=== PATIENT | male | born 1970 | race African-American/Black ===

== ENCOUNTER 2019-02-06 17:06 | Inpatient (IN) ==
--- NOTE | 2019-02-06 19:14 | Diag Imaging Result Doc PS360 ---
EXAM: CHEST-2 VIEWS INDICATION: SOB TECHNIQUE: 2 views COMPARISON: None. FINDINGS: The lungs are grossly clear. There is no discrete pleural fluid collection or pneumothorax. The cardiomediastinal silhouette and central vasculature are grossly unremarkable. IMPRESSION: No evidence of acute pathology by plain radiograph. Electronically signed by Bobby Mcneal 02/06/2019 7:12 PM
[2019-02-06] MEDS ORDERED: CATAPRES PO ONE (19:15)
[2019-02-06 19:33] LABS: BASO# 0.04 X1000 (0.0-0.2); BASO% 0.3 % (0.0-0.8); EOS# 0.34 X1000 (0.0-0.7); EOS% 2.7 % (0.0-10.0); HEMATOCRIT 41.5 % (42.0-52.0); HEMOGLOBIN 13.7 g/dL (14.0-18.0); IMM GRAN# 0.02 X1000 (0.0-0.04); IMM GRAN% 0.2 % (0.0-0.5); LYMPH# 5.31 X1000 (1.2-3.4); LYMPH% 42.4 % (20.5-51.1); MCH 28.9 PG (27-31); MCV 87.6 FL (81-99); MONO# 1.14 X1000 (0.11-0.59); MONO% 9.1 % (1.7-9.3); MPV 10.5 FL (7.4-10.4); NEUT# 5.66 X1000 (1.4-6.5); NEUT% 45.3 % (42.2-75.2); PLT 273 X1000 (130-400); RBC 4.74 XMIL (4.7-6.1); RDW 15.9 % (11.5-14.5); WBC 12.51 X1000 (4.8-10.8)
[2019-02-06 19:52] LABS: AGAP 11; ALBUMIN 4.9 g/dL (3.5-5.0); ALKALINE PHOSPHATASE 94 U/L (32-122); BUN 16 mg/dL (8-22); CALCIUM 9.5 mg/dL (8.8-10.2); CHLORIDE 104 mmol/L (98-107); COSMO 282; CREATININE 0.9 mg/dL (0.7-1.2); ESTIMATED GFR > 60; GLUCOSE 89 mg/dL (70-104); GOT 16 U/L (10-34); GPT 9 U/L (10-44); POTASSIUM 4.3 mmol/L (3.5-5.1); SODIUM 141 mmol/L (136-145); TCO2 26 mmol/L (25-35); TOTAL PROTEIN 7.8 g/dL (6.3-8.3)
[2019-02-06] MEDS: DUONEB (A & A) INH ONE ×2 (21:37→21:38)
--- NOTE | 2019-02-06 22:36 | EKG Report ---
Test Performed on : 02/06/2019 7:07:22 PM Test Reason : sob Blood Pressure : / mmHG Vent. Rate : 060 BPM Atrial Rate : 060 BPM P-R Int : 198 ms QRS Dur : 086 ms QT Int : 398 ms P-R-T Axes : 051 068 -19 degrees QTc Int : 398 ms Normal sinus rhythm. Minimal voltage criteria for LVH, may be normal variant Nonspecific T wave abnormality Abnormal ECG No previous ECGs available Unconfirmed Result
--- NOTE | 2019-02-06 23:44 | PROVIDER DOCUMENTATION ---
This chart was entered by Radha Mcneal Scribe, acting as scribe for Flavio Thomas MD. HPI-Respiratory General - General Chief Complaint: Shortness of Breath Stated Complaint: SOB, LIGHT HEADED Time Seen by Provider: 02/06/19 19:07 Source: patient Allergies/Adverse Reactions: Patient Allergies Allergy/AdvReac Type Severity Reaction Status Date / Time No Known Allergies Allergy Verified 02/06/19 17:17 Home Medications: Home Medication List Medication Instructions Recorded Confirmed Last Taken Type NK [No Home Medications] 02/06/19 02/06/19 Unknown History - History of Present Illness-Resp Nature of Presenting Problem: 48 yom presents to ed w/cc sob and lightheadedness since wednesday. pt noticed symptoms at work. pt walks up and down stairs frequently. pt took day off work wednesday but is still having symptoms. when pt sits, lightheadedness stops. pt denies cp at time of exam but states that he did have chest discomfort today, syncope. pt has hx of htn, was on lisinopril but hasn't taken for a while. no fam hx of cardiac dx. pt is a smoker, denies alcohol use. Quality of Pain: reports: none Severity in ED: reports: mild Onset/Duration: reports: 3 days ago Timing: reports: still present Cough Quality/Degree: reports: no cough Current Respiratory Medication Therapy: Initiated none Review of Systems - Adult - REVIEW OF SYSTEMS - ADULT Constitutional: reports: no symptoms reported Eyes: reports: no symptoms reported Ears, Nose, Mouth & Throat: reports: no symptoms reported Cardiovascular: reports: no symptoms reported. denies: chest pain, palpitations, syncope Respiratory: reports: see HPI, shortness of breath. denies: cough, dyspnea on exertion, pleurisy, wheezing Gastrointestinal: reports: no symptoms reported Genitourinary: reports: no symptoms reported Musculoskeletal: reports: no symptoms reported Integumentary: reports: no symptoms reported Neurological: reports: see HPI, other (lightheaded). denies: dizziness/vertigo, headache/migraines, syncope Psychiatric: reports: no symptoms reported Endocrine: reports: no symptoms reported Hematologic/Lymphatic: reports: no symptoms reported Allergic/Immunologic: reports: no symptoms reported All Other Systems: Reviewed and Negative Past History - Adult - PAST MEDICAL HISTORY-ADULT Review of Records: reports: Old Records Reviewed, Nursing Assessment Review, Medications Reviewed, Social history reviewed & non-contributory. Major Childhood Illnesses: reports: denies history Cardiovascular: reports: HTN Respiratory: reports: denies history Gastrointestinal: reports: denies history Obstetrical/Gynecological: reports: denies history Genitourinary: reports: denies history Musculoskeletal: reports: denies history Neurological: reports: CVA Endocrine/Immune: reports: denies history Other Conditions: reports: denies history - PRIOR SURGERIES/PROCEDURES Surgical/Procedure History: reports: none - IMMUNIZATION STATUS Childhood Immunizations: See Nurse Assessment Flu Vaccine: See Nurse Assessment - FAMILY HISTORY Family History: reviewed, not pertinent - SOCIAL HISTORY Smoking: cigarettes, less than 1 pack/day Provider spent 3-5 mins advising pt. on dangers of tobacco.: Discussed manners to quit use, and f/u contacts for add'l counseling. Substance Use: none/never Physical Exam-General - PHYSICAL EXAM-ADULT Initial Vital Signs Reviewed: Yes - CONSTITUTIONAL General Appearance: appears well, alert, no apparent distress - EYES Eyes: PERRL/EOMI, pink conjunctivae - HEAD, EARS, NOSE, MOUTH & THROAT HENMT: normocephalic/atraumatic, moist mucous membranes, normal ENT inspection - NECK Neck: non-tender, full range of motion, supple, normal inspection - RESPIRATORY Respiratory: chest non-tender, lungs clear, normal breath sounds, no pleuratic chest pain, no respiratory distress, no accessory muscle use, other (pt o2 sat at 1713 is 99%). negative: respiratory distress, decreased breath sounds, accessory muscle use, stridor, wheezing - CARDIOVASCULAR Cardiovascular: normal peripheral pulses, regular rate, rhythm - GASTROINTESTINAL (ABDOMEN) Abdominal Exam: normal bowel sounds, non tender, soft - LYMPHATIC Lymphatic: no adenopathy - MUSCULOSKELETAL Back Exam: normal inspection, no CVA tenderness, no vertebral tenderness Extremity: normal range of motion, non-tender, normal inspection Peripheral Pulses: radial (R): 2+, radial (L): 2+ - SKIN Integumentary: normal color, normal turgor, warm/dry - NEUROLOGIC Neurologic: grossly normal, no motor/sensory deficits - PSYCHIATRIC Psych/Mental Status: normal mood/affect, normal thought content, normal thought process, oriented x 3 - HEART Score HEART Score: History: Moderately Suspicious HEART Score: ECG: Non-Specific Repolarization Disturbance/LBBB/PM HEART Score: Age: 45-65 Years HEART Score: Risk Factors for Atherosclerotic Disease: 1 or 2 Risk Factors HEART Score: Troponin: < or = Normal Limit Total HEART Score:: 4 Progress - PLAN OF CARE/RESULTS Progress/Plan/Lab Results: Vital Signs - 8 hr 02/06/19 17:13 02/06/19 21:37 Temperature 98.5 F Pulse Rate 71 55 L Respiratory Rate 18 12 Blood Pressure 148/82 O2 Sat by Pulse Oximetry 99 100 Laboratory Results - last 24 hr 02/06/19 02/06/19 02/06/19 19:22 19:22 19:22 WBC 12.51 H RBC 4.74 Hgb 13.7 L Hct 41.5 L MCV 87.6 MCH 28.9 MCHC 33.0 RDW Std Deviation 15.9 H Plt Count 273 MPV 10.5 H Immature Gran % (Auto) 0.2 Neut % (Auto) 45.3 Lymph % (Auto) 42.4 Terry % (Auto) 9.1 Eos % (Auto) 2.7 Baso % (Auto) 0.3 Immature Gran # (Auto) 0.02 Neut # (Auto) 5.66 Lymph # (Auto) 5.31 H Terry # (Auto) 1.14 H Eos # (Auto) 0.34 Baso # (Auto) 0.04 D-Dimer, Quantitative 0.38 Sodium Potassium Chloride Carbon Dioxide Anion Gap BUN Creatinine Estimated GFR/1.73 m2 BUN/Creatinine Ratio Glucose Calculated Osmolality Calcium Total Bilirubin AST ALT Alkaline Phosphatase Troponin T < 0.010 Oxk-E-Eaditvgongu Pept Total Protein Albumin Globulin Albumin/Globulin Ratio 02/06/19 02/06/19 19:22 19:22 WBC RBC Hgb Hct MCV MCH MCHC RDW Std Deviation Plt Count MPV Immature Gran % (Auto) Neut % (Auto) Lymph % (Auto) Terry % (Auto) Eos % (Auto) Baso % (Auto) Immature Gran # (Auto) Neut # (Auto) Lymph # (Auto) Terry # (Auto) Eos # (Auto) Baso # (Auto) D-Dimer, Quantitative Sodium 141 Potassium 4.3 Chloride 104 Carbon Dioxide 26 Anion Gap 11 BUN 16 Creatinine 0.9 Estimated GFR/1.73 m2 > 60 BUN/Creatinine Ratio 18 Glucose 89 Calculated Osmolality 282 Calcium 9.5 Total Bilirubin 0.20 AST 16 ALT 9 L Alkaline Phosphatase 94 Troponin T Ocu-Z-Fcxrqhstmsx Pept 209 H Total Protein 7.8 Albumin 4.9 Globulin 3.0 Albumin/Globulin Ratio 2.0 Orders Category Date Time Status CHEST-2 VIEWS [RAD] Stat Exams 02/06/19 17:20 Completed CBC WITH ELECTRONIC DIFF [HEME] Stat Lab 02/06/19 19:22 Completed COMPREHENSIVE METABOLIC PANEL [CHEM] Stat Lab 02/06/19 19:22 Completed D-DIMER [COAG] Stat Lab 02/06/19 19:22 Completed PRO B-NATRIURETIC PEPTIDE Stat Lab 02/06/19 19:22 Completed TROPONIN T Stat Lab 02/06/19 19:22 Completed TROPONIN T Stat Lab 02/06/19 20:47 Ordered Albuterol 2.5MG/Ipratrop 0.5MG [Duoneb (A & A)] Med 02/06/19 20:17 Discontinued 3 ml INH NOW ONE Clonidine [Catapres] Med 02/06/19 19:15 Discontinued 0.1 mg PO NOW ONE Aerosol Treatments Routine Oth 02/06/19 20:18 Completed Aerosol Treatments Stat Oth 02/06/19 20:18 Completed EKG [EKG] Stat Ther 02/06/19 19:08 Draft Result Diagrams: 02/06/19 19:22 02/06/19 19:22 - EKG 1 Time of EKG reading by physician:: 19:07 EKG Read and Signed by:: Flavio Thomas EKG Interpretation (*Must complete 3 of following elements*): Abnormal Rate: 60 Rhythm: NSR [place]: normal QRS: LVH (minimal criteria for lvh, may be normal variant) MA Interval: normal ST Wave: non-specific ST changes (nonspecific t wave abnormality) - XRAY 1 XRAY: Bilateral XRAY Study: Chest Impression: Normal, See EMR Report ( EXAM: CHEST-2 VIEWS INDICATION: SOB TECHNIQUE: 2 views COMPARISON: None. FINDINGS: The lungs are grossly clear. There is no discrete pleural fluid collection or pneumothorax. The card iomediastinal silhouette and central vasculature are grossly unremarkable. IMPRESSION: No evidence of acute pathology by plain radiograph. Electronically signed by Bobby Mcneal 02/06/2019 7:12 PM) Comparison with other Films: no prior study - CONSULTS/PCP/HOSPITALIST Notification #1 *Consult/PCP/Hospitalist*: Dr. Gamble Time Discussed: 22:25 Consult Disposition: Admit (Dr. Gamble will admit pt) Departure - Departure Date of Disposition Decision: 02/06/19 Time of Disposition Decision: 23:43 DIAGNOSIS: SOB (shortness of breath), Atypical chest pain Disposition: ADMITTED INPATIENT 09 Certified Medical Emergency: Emergent Condition: Fair Referrals and Follow-Ups: None,PCP [Primary Care Provider] - - Critical Care Note This patient required my direct & personal management of CC.: No Attestation - Physician/ RUBINA Attestation Patient care was provided by Advanced Practice Provider:: No The physician spent face to face time with patient:: Yes Advanced Practice Provider documentation review:: Supervising physician onsite and consulted in the evaluation and care of this patient. The physician did have a face to face encounter with the patient. This chart was documented by the indicated scribe, (Radha Mcneal, Ollie) and accurately reflects the services I performed and decisions made by me, Flavio Thomas MD, as attested by the provider's signature.
[2019-02-07] MEDS ORDERED: ZOFRAN IV PRN (00:41)
[2019-02-07] MEDS ORDERED: MORPHINE IV PRN (00:41)
[2019-02-07] MEDS ORDERED: DUONEB (A & A) INH PRN (08:39)
--- NOTE | 2019-02-07 11:26 | GRADED EXERCISE REPORT ---
DATE: 02/07/2019 GXT ( aborted)/Lexiscan Indication: chest pain FINDINGS: Initially we tried a treadmill but that could not be completed, so we did a Lexiscan. The patient initially did the treadmill portion which he had pretty good exercise tolerance, no chest pain. His heart rate reached about 70% of predicted, but he felt tired. His legs were cramping too much and he stopped it on his own. We then converted to a Lexiscan. Heart rate was 61, blood pressure 163/96. Baseline EKG showed strain pattern, LVH and ST depression in 3 and aVF and V5, V6 which he had previously. He did have some ST elevations that look like J-point elevation in V2, V3 but no significant ST depressions. Clinically, he did have chest pain upon immediate infusion of 0.4 mg of Lexiscan. Peak heart rate 95, peak blood pressure was 163/96, so the test was felt to be clinically positive but electrically negative. Treadmill portion was electrically negative and chemically and clinically negative but again, he did not reach peak heart rate, so therefore, is not interpretable. Myocardial perfusion reported separately. cc: Rafael Gamble MD MTDD
--- NOTE | 2019-02-07 12:33 | HISTORY AND PHYSICAL ---
CHIEF COMPLAINT: Shortness of breath and chest pain. HISTORY OF PRESENT ILLNESS: This is a 48-year-old male with a history of CVA and hypertension although he is on no medications. He presents to the emergency room complaining of shortness of breath, feeling dizzy, and chest pain for the last 3 days. He states that this started at work while she was walking up and down stairs. This is a new symptom for her. He did take off work Wednesday thinking that if she rested it would improve although it did not. He does have dizziness on exercise with activity as well as shortness of breath, and what once she sits, symptoms both resolve. He did have some chest discomfort earlier in the day prior to coming to the emergency room. PAST MEDICAL HISTORY: CVA in 2006. Hypertension on no home medications. PAST SURGICAL HISTORY: None. SOCIAL HISTORY: Smokes about a half a pack a day. Denies alcohol or illicit drug use. ALLERGIES: No known drug allergies. HOME MEDICATIONS: Tamsulosin 0.4 mg p.o. at bedtime. REVIEW OF SYSTEMS: Discussed with patient with pertinent positives stated in the HPI. He denied any syncope, any productive cough, fever, chills, PND, orthopnea, any nausea, vomiting, diarrhea, constipation, black or bloody vomitus or stools, any hematuria, dysuria, frequency, or urgency. PHYSICAL EXAMINATION: GENERAL: This is a 48-year-old gentleman who is sitting up in the wheelchair in no distress. VITAL SIGNS: Blood pressure 156/81 with a heart rate of 58, respirations 18, temperature 97.7 degrees with room air sat 98 to 100%. HEENT: Head is normocephalic, atraumatic. Mucous membranes are moist. NECK: Supple. Trachea midline. CARDIOVASCULAR: Regular rate and rhythm. S1 and S2 are appreciated. Calves are nontender bilateral with peripheral pulses palpable x4 extremities. PULMONARY: Breath sounds are clear. No increased work of breathing noted. Chest rise and falls symmetric with respiration. Chest wall is nontender to palpation. GASTROINTESTINAL: Abdomen is soft, nontender, and nondistended. Bowel sounds in all 4 quadrants. GENITOURINARY: No CVA or suprapubic tenderness. NEUROLOGIC: He is alert and oriented x3. SKIN: Warm and dry. LABORATORY: WBC is 12.5 with hemoglobin 13.7, hematocrit 41.5, and platelets of 273,000. Sodium 141, potassium 4.3, BUN 16, creatinine 0.9 with a glucose of 89. Troponin's are negative on multiple occasions. EKG reveals sinus rhythm at a rate of 60. ASSESSMENT AND PLAN: 1. Shortness of breath. 2. Dizziness. 3. Atypical chest pain. 4. History of cerebrovascular accident. 5. History of hypertension on no home medications. 6. Tobacco use. PLAN: 1. The patient has been admitted to the medical-surgical floor and placed on telemetry which we will continue. He is going down for Lexiscan. We will order DuoNeb's p.r.n. Start steroids to taper. 2. For GI prophylaxis, we will start Prilosec. Further treatments pending hospital course. 3. This plan was discussed with Dr. Ellsworth. Dictated by ENA Mcneil for Peter Ellsworth MD cc: ENA Mcneil MD
[2019-02-07] MEDS: SOLU-MEDROL IV SCH ×2 (12:38→19:58)
[2019-02-07] MEDS ORDERED: LEXISCAN ONE (14:09)
--- NOTE | 2019-02-07 15:19 | Diag Imaging Result Document ---
PROCEDURE NAME: MYOCARDIAL PERF SCAN, STR/REST - 02/07/2019 LEXISCAN CARDIOLITE STRESS: Lexiscan by Dr. Gamble. Following Lexiscan infusion, Cardiolite was injected. Gated SPECT images were obtained in standard views. 13.4 mCi of Cardiolite was injected for the rest phase, 38.5 mCi of Cardiolite was injected for the stress phase. Gated SPECT images were obtained in standard views. Images revealed significant chest wall attenuation. Normal left ventricular cavity size. There is low-grade fixed defect in the left ventricular apex suggestive of attenuation defect. Low probability of scar. There is no evidence of ischemia. CONCLUSIONS: 1. No evidence of ischemia. 2. There is low-grade fixed defect in the left ventricular apex suggestive of attenuation defect. Low probability of scar. 3. Left ventricular ejection fraction by gated SPECT was 62%. cc: Ken Murphy MD
--- NOTE | 2019-02-07 19:59 | PROGRESS NOTE ---
DATE: 02/07/2019 SUBJECTIVE: The patient notes that he has shortness of breath that worsens with really any activity, although he denies any true chest pains with his activity. Denies any palpitations. States that once he sits down, his breathing seems to get better and his shortness of breath resolves. He is unsure if he has been wheezing. Denies any symptoms that wake him up at night. ALLERGIES: No known drug allergies. MEDICATIONS: None. REVIEW OF SYSTEMS: As noted above. Denies any fevers, chills. States he has been getting lightheaded and dizzy with activity, but denies any dysuria, urinary frequency, urgency, constipation, melena, hematochezia. Denies any swelling in his lower extremities. Denies any chest pains. Denies chest pressure. Denies radiation of symptoms. States shortness of breath improves with sitting down. Denies headaches, blurry vision, change in vision. PAST MEDICAL HISTORY: Hypertension, history of CVA. SOCIAL HISTORY: Patient smokes approximately a pack a day. He is employed. FAMILY HISTORY: Noncontributory. PHYSICAL EXAMINATION: Vital Signs: Reviewed. Temperature 98 degrees, pulse 71 to 55, respiratory 18, BP 148/82. General: Patient is awake, alert. He is in no current respiratory distress, although he is lying in bed. HEENT: Normocephalic. Neck: Supple. Cardiovascular: Regular rate. No murmurs. Chest: Clear, nonlabored. Abdomen: Soft, nondistended. Extremities: Moves all extremities. ASSESSMENT: 1. Shortness of breath. 2. Hypertension. 3. Atypical chest pain. PLAN: We will continue patient in the hospital. He is scheduled for a stress test later this morning. We will follow his symptoms. Hopefully, his stress test will be negative and we can discharge him home to follow up outpatient with pulmonology regarding his shortness of breath. cc: Peter Ellsworth MD
[2019-02-08] MEDS: SOLU-MEDROL IV SCH (04:39)
[2019-02-08] MEDS ORDERED: PRILOSEC PO SCH (07:00)
[2019-02-08 08:07] VITALS: BP 167/81
--- NOTE | 2019-02-08 08:40 | EKG Report ---
Test Performed on : 02/07/2019 00:03:48 AM Test Reason : SOB, LIGHT HEADED Blood Pressure : / mmHG Vent. Rate : 057 BPM Atrial Rate : 057 BPM P-R Int : 228 ms QRS Dur : 094 ms QT Int : 420 ms P-R-T Axes : 047 065 008 degrees QTc Int : 408 ms Sinus bradycardia. with 1st degree AV block. Minimal voltage criteria for LVH, may be normal variant Nonspecific T wave abnormality Abnormal ECG When compared with ECG of 06-FEB-2019 19:07, (Unconfirmed) MD interval has increased Unconfirmed Result
[2019-02-08] MEDS ORDERED: SOLU-MEDROL IV SCH (12:00)
--- NOTE | 2019-02-09 01:00 | DISCHARGE SUMMARY ---
ADMISSION DATE: 02/07/2019 DISCHARGE DATE: 02/08/2019 DIAGNOSES: 1. Shortness of breath. 2. Hypertension. 3. Atypical chest pain. 4. History of cerebrovascular accident. 5. History of hypertension, on no home medications. 6. Tobacco use. DIAGNOSTICS: 1. Chest x-ray revealed no evidence of acute pathology by plain radiograph. 2. EKG with normal sinus rhythm at a rate of 60. 3. Exercise stress test was attempted. The patient could not tolerate this. Therefore, he was converted to a Lexiscan. The patient treadmill portion was electrically negative and chemically and clinically negative although the patient did not reach a peak heart rate. He only reached 70% of predicted heart rate. 4. Myocardial perfusion scan revealed no evidence of ischemia. There is low-grade fixed defect in the left ventricle apex suggestive of attenuation defect, low probability of scar, left ventricular ejection fraction was 62%. HOSPITAL COURSE: Mr. Rose presented to the emergency room complaining shortness of breath and chest pain. He ruled out by troponins and EKG. He underwent a Lexiscan. It revealed a low-grade fixed defect in the left ventricular apex suggestive of attenuation defect. He did have an ejection fraction of 62% per Lexiscan. Thankfully, he had no further chest pain. He did have shortness of breath that he felt could be an asthma type or bronchitis type. We started steroids, DuoNebs p.r.n. and steroids to taper. He improved on these. Thankfully, he is ready for discharge. DISCHARGE VITAL SIGNS: Blood pressure is 167/81 with heart rate of 62, respirations are 18, temperature is 98 degrees with room air saturations 97%. DISCHARGE PHYSICAL EXAMINATION: Cardiovascular: Regular rate and rhythm. S1, S2 appreciated. He has no lower extremity edema. Calves are nontender bilateral. Pulmonary: Breath sounds are clear with no increased work of breathing noted. Chest rise and fall symmetric with respiration. Gastrointestinal: Abdomen is soft, nontender, nondistended with bowel sounds in all 4 quadrants. Neurologic: He is alert and oriented x3. DISCHARGE MEDICATIONS: 1. Albuterol inhaler 90 mcg inhalation. He does 1 inhalation 3 to 4 times a day p.r.n. wheezing and shortness of breath. 2. Medrol Dosepak as directed. FOLLOWUP: He is to follow up with his primary care physician in 1 to 2 weeks. He will be given the number to call for a list of physicians taking new patients if he has none. He has been instructed to return to the emergency room for any syncope, dizziness, recurring chest pain, palpitations, shortness of breath, cough, temperature greater than 101, any black or bloody vomitus or stools, any hematuria, dysuria, frequency, urgency or for any questions or concerns that he may have. He is being discharged home in stable condition with family members. TIME SPENT: This is a greater than 30 minute discharge. Dictated by ENA Mcneil for Peter Ellsworth MD cc: ENA Mcneil MD
--- NOTE | 2019-02-09 03:23 | DISCHARGE SUMMARY ---
ADMISSION DATE: 02/07/2019 DISCHARGE DATE: 02/08/2019 ADDENDUM: Patient seen and examined by myself. Full note dictated and discussed with nurse practitioner. On discharge, patient is awake, alert. Notes that his shortness of breath and lightheadedness have all but improved. Denies any fevers or chills. Denies cough or congestion. Denies any shortness of breath currently. He had a stress test that was respectively negative. PLAN: We will discharge patient home. He will follow up outpatient with primary care of his choice. We will discharge him on a Medrol Dosepak as he did have some improvement with steroids in the hospital. cc: Peter Ellsworth MD
== END 2019-02-08 13:00 | disposition home or self-care (01) | DRG 313 ==
LOC: P.ED 17:06 → P.MEDSURG 02-07 00:18 → SUATTDRO 02-07 00:18
PROVIDERS: ATTEND Family Medicine
CPT/HCPCS: 36415; 71020; 71046; 78452; 80053; 83880; 84484; 85025; 85379; 93005; 93017; 94640; 94760; 94761; A9270; A9500; J2785; J2920; J2930